=== PATIENT | female | born 1980 | race Caucasian/White ===

== ENCOUNTER 2017-05-06 19:06 | Emergency (ER) | payer OTHER ==
[~2017-05-06] VITALS: Ht 160 cm; Wt 77.1 kg
[2017-05-06] MEDS ORDERED: CYCL10 PO (20:57)
[2017-05-06] MEDS ORDERED: PROP80ER PO (21:11)
[2017-06-04] MEDS ORDERED: ONDA4ODT MM (21:10)
[2018-01-20] MEDS ORDERED: Nature-Throi16.25 MG PO (11:08)
[2018-01-20] MEDS ORDERED: BACL10 PO (11:08)
[2018-01-20] MEDS ORDERED: Calcitriol0.5 MCG PO (11:09)
[2018-01-20] MEDS ORDERED: DICL25ER PO (11:09)
== END 2017-05-06 21:10 | disposition home or self-care (01) ==
LOC: ER 19:06
DX: M25.511 Pain in right shoulder (principal); Z88.2 Allergy status to sulfonamides; Z88.8 Allergy status to other drugs, medicaments and biological substances; Z79.899 Other long term (current) drug therapy; Z98.51 Tubal ligation status
CPT/HCPCS: 96372; 99283; J1885

== ENCOUNTER 2017-06-04 | Emergency (ER) | END 2017-06-04 21:20 | disposition home or self-care (01) ==

== ENCOUNTER 2018-12-05 15:59 | Observation (INO) | payer OTHER ==
[~2018-12-05] VITALS: Ht 162.6 cm; Wt 66.8 kg
[~2018-12-05 15:59] MED LIST: BACL10 PO; CYCL10 PO; Calcitriol0.5 MCG PO; DICL25ER PO; Nature-Throi16.25 MG PO; ONDA4ODT MM; PROP80ER PO
[2018-12-05 16:37] LABS: BASOPHILS ABSOLUTE AUTO 0.05 K/mm3 (0.00-0.23); BASOPHILS PERCENT AUTO 0 % (0-2); EOSINOPHILS ABSOLUTE AUTO 0.07 K/mm3 (0.00-0.68); EOSINOPHILS PERCENT AUTO 1 % (0-6); Hematocrit 42.1 % (33.0-51.0); Hemoglobin 13.9 g/dL (11.5-16.0); IMMATURE GRAN ABSOLUTE AUTO 0.03 K/mm3 (0.00-0.10); IMMATURE GRAN PERCENT AUTO 0 % (0-1); LYMPHOCYTES ABSOLUTE AUTO 2.09 K/mm3 (0.84-5.20); LYMPHOCYTES PERCENT AUTO 18 % (21-46); MONOCYTES PERCENT AUTO 8 % (4-13); Mean Corpuscular HGB 29.6 pg (26.0-34.0); Mean Corpuscular Volume 90 fL (80-100); Mean Platelet Volume 9.5 fL (9.1-12.4); NEUTROPHILS ABSOLUTE AUTO 8.26 K/mm3 (1.96-9.15); NEUTROPHILS PERCENT AUTO 73 % (41-73); Platelet Count 327 K/mm3 (150-400); RDW Coefficient Variation 13.4 % (11.7-14.2); RDW Standard Deviation 44.4 fL (35.1-46.3); Red Blood Cell Count 4.69 M/mm3 (3.80-5.20)
[2018-12-05 16:54] LABS: Source, Urine Clean Catch
[2018-12-05 16:55] LABS: Alanine Aminotransfer (ALT/SGP 18 U/L (12-78); Albumin, Blood 3.1 g/dL (3.4-5.0); Albumin/Globulin Ratio 0.7 (0.8-1.8); Alk Phos 70 U/L (50-136); Anion Gap 3 mmol/L (6-16); Aspartate Aminotrans (AST/SGOT 10 U/L (12-37); Bilirubin, Total 0.3 mg/dL (0.1-1.0); Blood Urea Nitrogen 16 mg/dL (8-24); Bun/Creatinine Ratio 24.4 (12.0-20.0); CO2, Blood 32 mmol/L (21-32); Calcium, Blood 6.1 mg/dL (8.5-10.1); Chloride, Blood 104 mmol/L (98-108); Creatinine, Blood 0.66 mg/dL (0.40-1.00); Globulin, Blood 4.4 g/dL (2.2-4.0); Glomerular Filtration Rate >60 (60-); Glucose, Blood 92 mg/dL (70-99); Magnesium, Blood 2.1 mg/dL (1.6-2.4); Phosphorus, Blood 5.7 mg/dL (2.5-4.9); Potassium, Blood 3.5 mmol/L (3.5-5.5); Sodium, Blood 139 mmol/L (136-145); Total Protein, Blood 7.5 g/dL (6.4-8.2)
[2018-12-05 17:03] LABS: Bilirubin, Urine Neg (Neg); Blood, Urine Neg (Neg); Glucose Qualitative, Urine Neg (Neg); Ketones, Urine Neg (Neg); Leukocyte Esterase, Urine 2+ (Neg); Nitrite, Urine Neg (Neg); Protein, Urine 1+ (Neg); Urobilinogen, Urine 1+ (Normal)
[2018-12-05 17:07] LABS: Free Thyroxine 0.97 ng/dL (0.70-1.60); Thyroid Stimulating Hormone 4.42 uIU/mL (0.360-4.800)
[2018-12-05 17:12] LABS: Appearance, Urine Cloudy (Clear); Color, Urine Yellow (P-Yellow)
[2018-12-05 17:13] LABS: Bacteria Many /hpf; Red Blood Cells, Urine 0-2 /hpf (0-2); Squamous Epithelial Cells Many /hpf (Few)
[2018-12-05 17:14] LABS: Amorphous Light ({null, 0-Heavy})
[2018-12-05] MEDS ORDERED: Synthroid88 MCG PO (17:18)
[2018-12-05] MEDS ORDERED: THYR60 PO (17:20)
[2018-12-05] MEDS ORDERED: NAPR500 PO (17:21)
[2018-12-05] MEDS ORDERED: ACYC800 PO (17:22)
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
[2018-12-06 04:17] LABS: Hematocrit 40.2 % (33.0-51.0); Hemoglobin 12.7 g/dL (11.5-16.0); Mean Corpuscular HGB Conc 31.6 g/dL (31.5-36.5); Mean Corpuscular Volume 92 fL (80-100); Mean Platelet Volume 9.9 fL (9.1-12.4); Platelet Count 299 K/mm3 (150-400); RDW Coefficient Variation 13.5 % (11.7-14.2); RDW Standard Deviation 45.5 fL (35.1-46.3); Red Blood Cell Count 4.38 M/mm3 (3.80-5.20); White Blood Cell Count 11.12 K/mm3 (4.00-11.30)
[2018-12-06 04:33] LABS: Albumin, Blood 2.7 g/dL (3.4-5.0); Anion Gap 7 mmol/L (6-16); Blood Urea Nitrogen 13 mg/dL (8-24); Bun/Creatinine Ratio 19.5 (12.0-20.0); CO2, Blood 27 mmol/L (21-32); Calcium, Blood 7.9 mg/dL (8.5-10.1); Chloride, Blood 104 mmol/L (98-108); Creatinine, Blood 0.67 mg/dL (0.40-1.00); Glomerular Filtration Rate >60 (60-); Glucose, Blood 107 mg/dL (70-99); Phosphorus, Blood 6.8 mg/dL (2.5-4.9); Potassium, Blood 3.9 mmol/L (3.5-5.5); Sodium, Blood 138 mmol/L (136-145)
--- NOTE | 2018-12-06 06:14 | NUR ---
PATIENT SLEPT ABOUT SIX HOURS LAST NIGHT; INDEPENDENT IN ROOM TO BATHROOM; IVF INFUSE PER ORDER. NO OTHER ACUTE CHANGES TO REPORT. WILL CONTINUE TO MONITOR AND ASSESS UNTIL END OF SHIFT.
[2018-12-06 07:38] LABS: Albumin, Blood 2.9 g/dL (3.4-5.0); Anion Gap 8 mmol/L (6-16); Blood Urea Nitrogen 11 mg/dL (8-24); Bun/Creatinine Ratio 18.3 (12.0-20.0); CO2, Blood 27 mmol/L (21-32); Calcium, Blood 8.5 mg/dL (8.5-10.1); Chloride, Blood 103 mmol/L (98-108); Glomerular Filtration Rate >60 (60-); Glucose, Blood 95 mg/dL (70-99); Phosphorus, Blood 6.6 mg/dL (2.5-4.9); Potassium, Blood 3.5 mmol/L (3.5-5.5); Sodium, Blood 138 mmol/L (136-145)
[2018-12-06] MEDS ORDERED: TUMS500 MG PO (11:33)
--- NOTE | 2018-12-06 12:22 | NUR ---
PATIENT DISCHARGE: PATIENT DISCHARGED TO HOME THIS SHIFT. MEDICATION RECONCILIATION COMPLETED; MED LIST FAXED TO [facility]. DISCHARGE EDUCATION COMPLETED WITH PATIENT. PATIENT INDEPENDENT IN ROOM; PATIENT REFUSED WHEELCHAIR TO EXIT; PATIENT DEPARTED PCU @ 1215. PATIENT DEPARTED [facility] VIA PRIVATE AUTO.
== END 2018-12-06 11:45 | disposition home or self-care (01) ==
LOC: ER 15:59 → PCU 16:00 → ER 19:08 → PCU 19:08
PROVIDERS: Nurse Practitioner Acute Care; Physician Assistant; ADMIT Internal Medicine
DX: E83.51 Hypocalcemia (principal); E89.0 Postprocedural hypothyroidism; G43.909 Migraine, unspecified, not intractable, without status migrainosus; Z79.899 Other long term (current) drug therapy; Z88.2 Allergy status to sulfonamides; Z88.1 Allergy status to other antibiotic agents
CPT/HCPCS: 36415; 80053; 80069; 81001; 82306; 82330; 82652; 83735; 83970; 84100; 84439; 84443; 84481; 84703; 85025; 85027; 87086; 93005; 93010; 96361; 96365; 96366; 99285-25; G0378; J0610; J1650; J7030; J7060; J7070

== ENCOUNTER 2019-03-22 05:49 | Day surgery (SDC) | payer OTHER ==
[2019-03-20 15:19] LABS: BASOPHILS ABSOLUTE AUTO 0.06 K/mm3 (0.00-0.23); BASOPHILS PERCENT AUTO 1 % (0-2); EOSINOPHILS ABSOLUTE AUTO 0.11 K/mm3 (0.00-0.68); EOSINOPHILS PERCENT AUTO 1 % (0-6); Hematocrit 42.7 % (33.0-51.0); Hemoglobin 14.1 g/dL (11.5-16.0); IMMATURE GRAN ABSOLUTE AUTO 0.03 K/mm3 (0.00-0.10); IMMATURE GRAN PERCENT AUTO 0 % (0-1); LYMPHOCYTES ABSOLUTE AUTO 2.33 K/mm3 (0.84-5.20); LYMPHOCYTES PERCENT AUTO 24 % (21-46); MONOCYTES ABSOLUTE AUTO 0.67 K/mm3 (0.16-1.47); MONOCYTES PERCENT AUTO 7 % (4-13); Mean Corpuscular HGB 28.9 pg (26.0-34.0); Mean Corpuscular Volume 88 fL (80-100); Mean Platelet Volume 9.6 fL (9.1-12.4); NEUTROPHILS ABSOLUTE AUTO 6.38 K/mm3 (1.96-9.15); NEUTROPHILS PERCENT AUTO 67 % (41-73); Platelet Count 379 K/mm3 (150-400); RDW Coefficient Variation 12.2 % (11.7-14.2); RDW Standard Deviation 39.4 fL (35.1-46.3); Red Blood Cell Count 4.88 M/mm3 (3.80-5.20); White Blood Cell Count 9.58 K/mm3 (4.00-11.30)
[2019-03-20 15:46] LABS: Anion Gap 5 mmol/L (6-16); Beta HCG, Quantitative, Serum <1 mIU/mL (0-3); Blood Urea Nitrogen 11 mg/dL (8-24); Bun/Creatinine Ratio 14.6 (12.0-20.0); CO2, Blood 29 mmol/L (21-32); Calcium, Blood 8.5 mg/dL (8.5-10.1); Chloride, Blood 104 mmol/L (98-108); Creatinine, Blood 0.76 mg/dL (0.40-1.00); Glomerular Filtration Rate >60 (60-); Glucose, Blood 98 mg/dL (70-99); Potassium, Blood 3.4 mmol/L (3.5-5.5); Sodium, Blood 138 mmol/L (136-145)
[~2019-03-22] VITALS: Ht 165.1 cm; Wt 68.0 kg
[~2019-03-22 05:49] MED LIST changes: +ACYC800 PO; +NAPR500 PO; +Synthroid88 MCG PO; +THYR60 PO; +TUMS500 MG PO
--- NOTE | 2019-03-22 06:35 | NUR ---
Ambulatory in Day Surgery History, Chart, Medications and Allergies reviewed before start of procedure.Patient confirms NPO status and agrees with scheduled surgery.
--- NOTE | 2019-03-22 09:22 | NUR ---
03/22/19 0922 Travis Hernandez 1L NS FOR IR
--- NOTE | 2019-03-22 11:45 | NUR ---
GLASSES TO ROOM 226 WITH PT
--- NOTE | 2019-03-22 13:25 | NUR ---
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 VSS. AWAKENS WITH CARE. CONT TO MONITOR.
--- NOTE | 2019-03-22 16:18 | NUR ---
PATIENT AWAKENS TO VERBAL STIMULI, ANSWERS QUESTIONS. STATES 'I AM NOT HAVING BAD PAIN RIGHT NOW,' RETURNS TO SLEEP.
--- NOTE | 2019-03-22 16:29 | NUR ---
PATIENT AWAKE, STARTING TO TAKE FLUIDS AND JELLO PO.
--- NOTE | 2019-03-22 18:09 | NUR ---
SHIFT SUMMARY PATIENT HAS SLEPT MOST OF AFTERNOON. STILL C/O SOME NAUSEA, NO EMESIS. ZOFRAN ADMIN W/FAIR RESULTS. TOOK FEW BITES OF JELLO, CRACKERS. UP TO AMBULATE TO DOOR OF ROOM, BACK TO BED. VERY SCANT VAG DRAINAGE. STATES PAIN AT TOLERABLE LEVEL, BACK TO SLEEP.
[2019-03-23 04:59] LABS: BASOPHILS ABSOLUTE AUTO 0.03 K/mm3 (0.00-0.23); BASOPHILS PERCENT AUTO 0 % (0-2); EOSINOPHILS ABSOLUTE AUTO 0.02 K/mm3 (0.00-0.68); EOSINOPHILS PERCENT AUTO 0 % (0-6); Hematocrit 32.4 % (33.0-51.0); Hemoglobin 10.5 g/dL (11.5-16.0); IMMATURE GRAN ABSOLUTE AUTO 0.05 K/mm3 (0.00-0.10); IMMATURE GRAN PERCENT AUTO 0 % (0-1); LYMPHOCYTES ABSOLUTE AUTO 2.75 K/mm3 (0.84-5.20); LYMPHOCYTES PERCENT AUTO 19 % (21-46); MONOCYTES ABSOLUTE AUTO 1.16 K/mm3 (0.16-1.47); MONOCYTES PERCENT AUTO 8 % (4-13); Mean Corpuscular HGB 28.4 pg (26.0-34.0); Mean Corpuscular HGB Conc 32.4 g/dL (31.5-36.5); Mean Corpuscular Volume 88 fL (80-100); Mean Platelet Volume 10.2 fL (9.1-12.4); NEUTROPHILS ABSOLUTE AUTO 10.25 K/mm3 (1.96-9.15); NEUTROPHILS PERCENT AUTO 72 % (41-73); Platelet Count 279 K/mm3 (150-400); RDW Coefficient Variation 12.5 % (11.7-14.2); RDW Standard Deviation 39.8 fL (35.1-46.3); White Blood Cell Count 14.26 K/mm3 (4.00-11.30)
--- NOTE | 2019-03-23 06:03 | NUR ---
SHIFT SUMMARY PATIENT HAD 10/10 PAIN AT THE BEGINNING OF THE SHIFT IN HER ABDOMEN. HER ABD DRESSINGS ARE CLEAR AND DRY. SCANT AMOUNT OF BLOOD ON JONATHAN PAD. PATIENT WAS UP TO BR 1 TIME TO HAVE A BM AND WALKED IN THE HALLWAY. NO BM THIS SHIFT. NO FLATUS. Tang CATH REMOVED THIS AM WITH OUT DIFFICULTY. nO ACUTE ISSUES.
--- NOTE | 2019-03-23 12:00 | NUR ---
UP TO AMBULATE IN [place], TOLERATED WELL. STATES PAIN MUCH IMPROVED WITH PO PAIN MED. TOLERATING PO. VOIDING > 300 ML X2 THIS AM. CONT TO MONITOR.
--- NOTE | 2019-03-23 17:57 | NUR ---
SHIFT SUMMARY PATIENT STATES PAIN CONTROLLED WITH PO PAIN MEDS. AMBULATING IN [place]. VOIDING WELL. TOLERATING PO. NOT PASSING FLATUS YET. DR MCNEILL STATES HE WILL BE HERE SOON.
[2019-03-23] MEDS ORDERED: Estradiol2 MG PO (18:33)
[2019-03-23] MEDS ORDERED: Percocet 5-3251 EACH PO (18:34)
[2019-03-23] MEDS ORDERED: IBUP400 PO (18:35)
[2019-03-23] MEDS ORDERED: ABAT250V (18:37)
[2019-03-23] MEDS ORDERED: PROM25 PO (18:37)
[2019-03-23] MEDS ORDERED: DOCU100 PO (18:41)
[2019-03-23] MEDS ORDERED: Milk Of Ma400 MG/5 M PO (18:43)
[2019-03-23] MEDS ORDERED: SIME80CH PO (18:44)
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
== END 2019-03-23 19:00 | disposition home or self-care (01) ==
LOC: ORSCMMR 05:49 → ORD 07:30 → ORSCMMR 07:30 → SURS 11:34 → ORSCMMR 03-23 19:00
PROVIDERS: Obstetrics & Gynecology
PROC: 0UT2FZZ Resection of Bilateral Ovaries, Via Natural or Artificial Opening With Percutaneous Endoscopic Assistance (ICD-10-PCS; principal; 2019-03-22 07:30)
PROC: 8E0W4CZ Robotic Assisted Procedure of Trunk Region, Percutaneous Endoscopic Approach (ICD-10-PCS; principal; 2019-03-22 07:30)
PROC: 0UT9FZZ Resection of Uterus, Via Natural or Artificial Opening With Percutaneous Endoscopic Assistance (ICD-10-PCS; principal; 2019-03-22 07:30)
PROC: 0UT7FZZ Resection of Bilateral Fallopian Tubes, Via Natural or Artificial Opening With Percutaneous Endoscopic Assistance (ICD-10-PCS; principal; 2019-03-22 07:30)
DX: N80.3 Endometriosis of pelvic peritoneum (principal); N92.1 Excessive and frequent menstruation with irregular cycle; N94.6 Dysmenorrhea, unspecified; N94.10 Unspecified dyspareunia; R10.2 Pelvic and perineal pain; N83.11 Corpus luteum cyst of right ovary
CPT/HCPCS: 58552; S2900; 36415; 80048; 84702; 85025; 86850; 86900; 86901; 88307; 93005; 93010; J0330; J0690; J1885; J2250; J2405; J2550; J2704; J2710; J3010; J7120

== ENCOUNTER 2019-04-24 08:20 | Day surgery (SDC) | payer OTHER ==
[~2019-04-24 08:20] MED LIST changes: +ABAT250V; +DOCU100 PO; +Estradiol2 MG PO; +IBUP400 PO; +Milk Of Ma400 MG/5 M PO; +PROM25 PO; +Percocet 5-3251 EACH PO; +SIME80CH PO
[2019-04-25] MEDS ORDERED: PROP120ER PO (11:29)
[2019-04-25] MEDS ORDERED: ACYCLOVIR400 MG (11:30)
[2019-04-25] MEDS ORDERED: Diclofenac Sodi50 MG (11:30)
[2019-04-25] MEDS ORDERED: Estradiol0.5 MG PO (11:31)
[2019-04-25] MEDS ORDERED: Nature-Throid65 MG PO (11:31)
[2019-04-25] MEDS ORDERED: CALC.25 (11:32)
[2019-04-25] MEDS ORDERED: Bentyl10 MG (11:32)
[2019-04-25] MEDS ORDERED: Cipro500 MG PO (13:10)
[2019-04-25] MEDS ORDERED: Flagyl500 MG PO (13:10)
== END 2019-04-24 22:57 | disposition home or self-care (01) ==
LOC: US 08:20
DX: R59.0 Localized enlarged lymph nodes (principal); E89.0 Postprocedural hypothyroidism; C73 Malignant neoplasm of thyroid gland; K21.9 Gastro-esophageal reflux disease without esophagitis; M79.7 Fibromyalgia; E11.9 Type 2 diabetes mellitus without complications; M19.90 Unspecified osteoarthritis, unspecified site; G43.909 Migraine, unspecified, not intractable, without status migrainosus; Z79.890 Hormone replacement therapy; Z79.899 Other long term (current) drug therapy; Z88.1 Allergy status to other antibiotic agents; Z88.2 Allergy status to sulfonamides
CPT/HCPCS: 38505; 76942; 88305

== ENCOUNTER 2019-04-25 10:22 | Emergency (ER) | payer OTHER ==
[~2019-04-25] VITALS: Ht 162.6 cm; Wt 63.5 kg
[2019-04-25] MEDS ORDERED: PROP120ER PO (11:29)
[2019-04-25] MEDS ORDERED: Diclofenac Sodi50 MG (11:30)
[2019-04-25] MEDS ORDERED: ACYCLOVIR400 MG (11:30)
[2019-04-25] MEDS ORDERED: Estradiol0.5 MG PO (11:31)
[2019-04-25] MEDS ORDERED: Nature-Throid65 MG PO (11:31)
[2019-04-25] MEDS ORDERED: Bentyl10 MG (11:32)
[2019-04-25] MEDS ORDERED: CALC.25 (11:32)
[2019-04-25 11:33] LABS: Source, Urine Clean Catch
[2019-04-25 11:36] LABS: BASOPHILS ABSOLUTE AUTO 0.03 K/mm3 (0.00-0.23); BASOPHILS PERCENT AUTO 0 % (0-2); EOSINOPHILS ABSOLUTE AUTO 0.38 K/mm3 (0.00-0.68); EOSINOPHILS PERCENT AUTO 5 % (0-6); Hematocrit 40.4 % (33.0-51.0); IMMATURE GRAN ABSOLUTE AUTO 0.02 K/mm3 (0.00-0.10); IMMATURE GRAN PERCENT AUTO 0 % (0-1); LYMPHOCYTES ABSOLUTE AUTO 2.13 K/mm3 (0.84-5.20); LYMPHOCYTES PERCENT AUTO 26 % (21-46); MONOCYTES ABSOLUTE AUTO 0.48 K/mm3 (0.16-1.47); MONOCYTES PERCENT AUTO 6 % (4-13); Mean Corpuscular HGB 28.3 pg (26.0-34.0); Mean Corpuscular HGB Conc 32.2 g/dL (31.5-36.5); Mean Corpuscular Volume 88 fL (80-100); Mean Platelet Volume 10.6 fL (9.1-12.4); NEUTROPHILS ABSOLUTE AUTO 5.05 K/mm3 (1.96-9.15); NEUTROPHILS PERCENT AUTO 63 % (41-73); Platelet Count 282 K/mm3 (150-400); RDW Coefficient Variation 12.6 % (11.7-14.2); RDW Standard Deviation 40.9 fL (35.1-46.3); Red Blood Cell Count 4.59 M/mm3 (3.80-5.20); White Blood Cell Count 8.09 K/mm3 (4.00-11.30)
[2019-04-25 11:38] LABS: Bilirubin, Urine Neg (Neg); Blood, Urine 2+ (Neg); Glucose Qualitative, Urine Neg (Neg); Ketones, Urine Neg (Neg); Leukocyte Esterase, Urine 1+ (Neg); Nitrite, Urine Neg (Neg); Protein, Urine Neg (Neg); Specific Gravity, Urine 1.025 (1.003-1.022); Urobilinogen, Urine NORM (Normal)
[2019-04-25 11:45] LABS: Appearance, Urine Clear (Clear); Color, Urine Yellow (P-Yellow)
[2019-04-25 11:46] LABS: Alanine Aminotransfer (ALT/SGP 16 U/L (12-78); Albumin, Blood 3.1 g/dL (3.4-5.0); Albumin/Globulin Ratio 0.7 (0.8-1.8); Alk Phos 59 U/L (50-136); Anion Gap 6 mmol/L (6-16); Aspartate Aminotrans (AST/SGOT 11 U/L (12-37); Bilirubin, Total 0.2 mg/dL (0.1-1.0); Blood Urea Nitrogen 15 mg/dL (8-24); Bun/Creatinine Ratio 16.4 (12.0-20.0); CO2, Blood 28 mmol/L (21-32); Calcium, Blood 7.8 mg/dL (8.5-10.1); Chloride, Blood 105 mmol/L (98-108); Creatinine, Blood 0.92 mg/dL (0.40-1.00); Globulin, Blood 4.4 g/dL (2.2-4.0); Glomerular Filtration Rate >60 (60-); Glucose, Blood 83 mg/dL (70-99); Potassium, Blood 3.9 mmol/L (3.5-5.5); Sodium, Blood 139 mmol/L (136-145); Total Protein, Blood 7.5 g/dL (6.4-8.2)
[2019-04-25 11:48] LABS: Bacteria Many /hpf; Squamous Epithelial Cells Mod /hpf (Few)
[2019-04-25] MEDS ORDERED: Flagyl500 MG PO (13:10)
[2019-04-25] MEDS ORDERED: Cipro500 MG PO (13:10)
[2019-04-25 14:40] LABS: Campylobacter Sp Not Detected (NOT DETECT)
[2019-04-25 14:51] LABS: Adenovirus F 40/41 Not Detected (NOT DETECT); Astrovirus Not Detected (NOT DETECT); Cryptosporidium Not Detected (NOT DETECT); Cyclospora Cayetanensis Not Detected (NOT DETECT); E. Coli O157 Not Detected (NOT DETECT); Entamoeba Histolytica Not Detected (NOT DETECT); Enteroaggregative E. coli-EAEC Not Detected (NOT DETECT); Enteropathogenic E. coli-EPEC Not Detected (NOT DETECT); Enterotoxigenic E. coli-ETEC Not Detected (NOT DETECT); Giardia Lamblia Not Detected (NOT DETECT); Norovirus GI/GII Not Detected (NOT DETECT); Plesiomonas Shigelloides Not Detected (NOT DETECT); Rotavirus A Not Detected (NOT DETECT); Salmonella Sp Not Detected (NOT DETECT); Sapovirus Not Detected (NOT DETECT); Shiga Toxin-prod E. coli-STEC Not Detected (NOT DETECT); Shigella/Enteroin E. coli-EIEC Not Detected (NOT DETECT); Vibrio Cholerae Not Detected (NOT DETECT); Vibrio Sp Not Detected (NOT DETECT); Yersinia Enterocolitica Not Detected (NOT DETECT)
== END 2019-04-25 13:47 | disposition home or self-care (01) ==
LOC: ER 10:22
PROVIDERS: Emergency Medicine
DX: K52.9 Noninfective gastroenteritis and colitis, unspecified (principal); Z88.2 Allergy status to sulfonamides; Z88.8 Allergy status to other drugs, medicaments and biological substances; Z79.899 Other long term (current) drug therapy
CPT/HCPCS: 0097U; 36415; 74177; 80053; 81001; 81025; 83690; 85025; 87086; 87324; 99284-25; Q9967